=== PATIENT | male | born 2000 | race African-American/Black ===

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

== ENCOUNTER 2023-05-11 16:25 | Emergency (ER) | payer MEDICAID ==
[~2023-05-11] VITALS: Ht 185.4 cm; Wt 70.1 kg
[2023-05-11 18:31] VITALS: BP 114/70; PULSE 61; RESP 18; TEMP 98; O2SAT 100
[2023-05-11] MEDS ORDERED: ACET-1304 PO (18:54)
[2023-05-11] MEDS ORDERED: CYCL-839 PO (18:54)
== END 2023-05-11 18:51 | disposition home or self-care (01) ==
LOC: ER 16:25
DX: S29.012A Strain of muscle and tendon of back wall of thorax, initial encounter (principal); V49.9XXA Car occupant (driver) (passenger) injured in unspecified traffic accident, initial encounter; Y93.89 Activity, other specified; Y92.410 Unspecified street and highway as the place of occurrence of the external cause; Y99.8 Other external cause status

== ENCOUNTER 2024-07-25 07:24 | Emergency (ER) | payer MEDICAID ==
[~2024-07-25] VITALS: Ht 185.4 cm; Wt 70.0 kg
[~2024-07-25 07:24] MED LIST changes: +ACET-1304 PO; +CYCL-839 PO; -IOHEXOL 350 MG/ML 100ML IJ ONE
[2024-07-25 07:43] VITALS: BP 117/71; PULSE 90; TEMP 98.2
--- NOTE | 2024-07-25 08:03 | ED.PDOC ---
SOB-HPI HPI Comments 24 year old male presents to the ED with chief complaint of flu-like illness. Patient reports that he has been experiencing a cough with associated nasal congestion since 07/21. Patient relays that he has been taking days off work due to his illness since then, needing a note for work from 07/21 to today. Patient denies any N/V/D, abdominal pain, SOB, chest pain, dizziness, headache, fever, or chills. Chief Complaint: Medical Clearance Time Seen by MD: 08:01 Primary Care Provider: ALBAK Reviewed notes: Nurses Notes, Medications, Allergies Information Source: Patient Mode of Arrival: Ambulatory Severity: Mild Timing: Days Duration: Since onset Context: At Rest PE Risk Factors: None History of: None Prehospital treatment: None Modifying Factors: Nothing Associated Signs and Symptoms: Cough, Nasal Congestion If cough with SOB: Non-Productive Past Medical History PAST MEDICAL HISTORY: Denies Surgical History: Denies all surgeries Family History Family History: Unknown Social History Smoker: Non-Smoker Alcohol: Denies ETOH Use Drugs: Denies Drug Use Lives In: Home Constitutional: denies: chills, diaphoresis, fatigue, fever, malaise, sweats, weakness, others EENTM: reports: nose congestion; denies: blurred vision, double vision, ear bleeding, ear discharge, ear drainage, ear pain, ear ringing, eye pain, eye redness, hearing loss, mouth pain, mouth swelling, nasal discharge, nose bleeding, nose pain, photophobia, tearing, throat pain, throat swelling, voice changes, others Respiratory: reports: cough; denies: hemoptysis, orthopnea, SOB at rest, shortness of breath, SOB with excertion, stridor, wheezing, others Cardiovascular: denies: chest pain, dizzy spells, diaphoresis, Dyspnea on exertion, edema, irregular heart beat, left arm pain, lightheadedness, palpitations, PND, syncope, others Gastrointestinal: denies: abdomen distended, abdominal pain, blood streaked bowels, constipated, diarrhea, dysphagia, difficulty swallowing, hematemesis, melena, nausea, poor appetite, poor fluid intake, rectal bleeding, rectal pain, vomiting, others Genitourinary: denies: burning, dysuria, flank pain, frequency, hematuria, incontinence, penile discharge, penile sore, pain, testicle pain, testicle swelling, urgency, others Neurological: denies: dizziness, fainting, headache, left sided numbness, left sided weakness, numbness, paresthesia, pre-existing deficit, right sided numbness, right sided weakness, seizure, speech problems, tingling, tremors, weakness, others Musculoskeletal: denies: back pain, gout, joint pain, joint swelling, muscle pain, muscle stiffness, neck pain, others Integumetry: denies: bruises, change in color, change in hair/nails, dryness, laceration, lesions, lumps, rash, wounds, others Allergic/Immunocompromised: denies: Difficulty Healing, Frequent Infections, Hives, Itching, others Hematologic/Lymphatic: denies: anemia, blood clots, easy bleeding, easy bruising, swollen glands, others Endocrine: denies: excessive hunger, excessive sweating, excessive thirst, excessive urination, flushing, intolerance to cold, intolerance to heat, unexp lained weight gain, unexplained weight loss, others Psychiatric: denies: anxiety, bipolar disorder, depression, hopeless, panic disorder, schizophrenia, sleepless, suicidal, others All Other Systems: Reviewed and Negative Physical Exam General Appearance: No Apparent Distress, Normal HEENT: Normal ENT Inspection, PERRL/EOMI, Pharyngeal Erythema, TMs Normal Neck: Full Range of Motion, Non-Tender, Normal, Normal Inspection Respiratory: Chest Non-Tender, Lungs Clear, No Accessory Muscle Use, No Respiratory Distress, Normal Breath Sounds Cardiovascular: No Edema, No JVD, No Murmur, No Gallop, Normal Peripheral Pulses, Regular Rate/Rhythm Breast Exam: Deferred Gastrointestinal: No Organomegaly, Non Tender, No Pulsatile Mass, Normal Bowel Sounds, Soft Genitalia: Deferred Pelvic: Deferred Rectal: Deferred Extremities: No calf tenderness, Normal capillary refill, Normal inspection, Normal range of motion, Non-tender, No pedal edema Musculoskeletal : Apperance: Normal Neurologic: Alert, audiometrist II-XII nml as Tested, No Motor Deficits, Normal Affect, Normal Mood, No Sensory Deficits Cerebellar Function: Normal Reflexes: Normal Skin: Dry, Normal Color, Warm Peripheral Pulses: 1+ carotid (R), 1+ carotid (L) Lymphatic: No Adenopathy Was a procedure done? Was a procedure done?: No Differential Dx Differential Diagnosis: Bronchitis, Hypertension, Sinusitis, Pharyngitis, URI X-Ray, Labs, Meds, VS Vital Signs Date Time Temp Pulse Resp B/P (MAP) Pulse Ox O2 Delivery O2 Flow Rate FiO2 07/25/24 07:43 90 16 98 Room Air 07/25/24 07:43 98.2 90 16 117/71 (86) 98 98.2 07/25/24 07:33 98.2 90 16 117/71 (86) 98 98.2 Time of 1ST Reevaluation: 08:30 Reevaluation 1ST: Unchanged Time of 2ND Reevaluation: 08:39 Reevaluation 2ND: Improved Consultation: PCP Patient Education/Counseling: Diagnosis, Treatment, Prognosis, Need For Follow Up Family Education/Counseling: Diagnosis, Treatment, Prognosis, Need For Follow Up, No Family Present Departure 1 Departure Time of Disposition: 08:40 Impression: Primary Impression: Flu syndrome Disposition: 01 HOME / SELF CARE / HOMELESS Condition: Fair Additional Instructions: Push fluids and follow up with your PCP May resume work 07/26/2024 Discharged With: Self Critical Care Note Critical Care Time?: No Stability Stability form required: No Heart Score Heart Score: Heart Score Response (Comments) Value History N/A 0 EKG N/A 0 Age <45 0 Risk Factors No known risk factors 0 Troponin N/A 0 Total 0 I personally scribed for RODOLFO TUCKER MD ([email or web address]) on 07/25/24 at 08:03. Electronically submitted by Felipe Beal ([email or web address]). I personally scribed for RODOLFO TUCKER MD ([email or web address]) on 07/25/24 at 08:22. Electronically submitted by Felipe Beal ([email or web address]). RODOLFO TUCKER MD Jul 25, 2024 08:03
[2024-07-25 08:45] VITALS: RESP 15; O2SAT 98
== END 2024-07-25 08:50 | disposition home or self-care (01) ==
LOC: ER 07:24
DX: J11.1 Influenza due to unidentified influenza virus with other respiratory manifestations (principal)